=== PATIENT | male | born 1980 ===

== ENCOUNTER 2016-09-26 21:30 | Emergency (ER) | payer MEDICAID ==
[2016-09-26 21:51] VITALS: BP 154/76; PULSE 91; RESP 20; TEMP 98; O2SAT 99
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
== END 2016-09-26 23:59 | disposition home or self-care (01) ==
LOC: H.ER 21:30
DX: S10.93XA Contusion of unspecified part of neck, initial encounter (principal); S02.2XXA Fracture of nasal bones, initial encounter for closed fracture; Y04.0XXA Assault by unarmed brawl or fight, initial encounter; Y92.89 Other specified places as the place of occurrence of the external cause

== ENCOUNTER 2017-09-16 19:45 | Emergency (ER) | payer MEDICAID ==
[2017-09-16 20:07] VITALS: BP 109/71; RESP 18; O2SAT 99
--- NOTE | 2017-09-16 21:04 | ED PDOC ---
HPI: Chest Pain Chief Complaint (Nursing): Chest Pain Chief Complaint (Provider): Chest pain History Per: Patient Additional Complaint(s): 37 yo male, PMH of Asthma, presents to ED with complains of 2 days of right sided chest wall pain worse with movement, deep inspiration and upon palpation. No medications taken for pain thus far. No palpitations, SOB, no nausea or vomiting or diaphroesis. Past Medical History Reviewed: Nursing Documentation, Vital Signs Vital Signs: Last Vital Signs Temp 98.1 F 09/16/17 20:04 Pulse 82 09/16/17 21:14 Resp 18 09/16/17 20:04 BP 109/71 09/16/17 20:04 Pulse Ox 99 09/16/17 21:15 - Medical History PMH: Asthma - Surgical History Surgical History: No Surg Hx - Family History Family History: States: Unknown Family Hx - Living Arrangements Living Arrangements: With Family - Social History Current smoker - smoking cessation education provided: Yes (1-2 PPD x 20 + years ) Ex-Smoker (has not smoked in the last 12 months): No Alcohol: None Drugs: Denies - Immunization History Hx Tetanus Toxoid Vaccination: No Hx Influenza Vaccination: No Hx Pneumococcal Vaccination: No - Home Medications Home Medications: Ambulatory Orders Medication Instructions Recorded Acetaminophen/Oxycodone Hydr 1 tab PO Q4H #15 tab 09/29/12 [Percocet 325 mg-5 mg] Naproxen 1 tab PO Q12 PRN #14 tab 09/26/16 Pseudoephedrine [Sudafed Tab] 60 mg PO Q6 PRN #15 tab 09/26/16 Cyclobenzaprine [Cyclobenzaprine 10 mg PO TID #20 tab 09/16/17 HCl] Ibuprofen [Motrin] 600 mg PO Q6 #20 tab 09/16/17 - Allergies Allergies/Adverse Reactions: Allergies Allergy/AdvReac Type Severity Reaction Status Date / Time No Known Allergies Allergy Unverified 09/16/17 20:04 JOEL Risk Score for UA/NSTEMI - JOEL Risk Score Age > 64: NO 3 or more CAD Risk Factors: NO Known CAD (Stenosis greater than 50%): NO Aspirin use in past 7 days: NO Severe Angina: NO EKG ST changes greater than 0.5mm: NO Positive Cardiac Marker: NO JOEL Score: 0 Risk %: 5% Wells Criteria for PE - Wells Criteria for Pulmonary Embolism Clinical Signs and Symptoms of DVT: No P.E is #1 Diagnosis, or Equally Likely: No Heart Rate >100: No Immobilization at least 3 days;Surgery previous 4 weeks: No Previous, objectively diagnosed PE or DVT: No Hemoptysis: No Malignancy w/treatment within 6 months, or palliative: No Total Score: 0 Review of Systems ROS Statement: Except As Marked, All Systems Reviewed And Found Negative Cardiovascular: Positive for: Chest Pain Physical Exam - Reviewed Nursing Documentation Reviewed: Yes Vital Signs Reviewed: Yes - Physical Exam Appears: Positive for: Well, Non-toxic, No Acute Distress Head Exam: Positive for: ATRAUMATIC, NORMAL INSPECTION, NORMOCEPHALIC Skin: Positive for: Normal Color, Warm, DRY Eye Exam: Positive for: EOMI, Normal appearance, PERRL ENT: Positive for: Normal ENT Inspection Neck: Positive for: Normal, Painless ROM Cardiovascular/Chest: Positive for: Regular Rate, Rhythm. Negative for: Chest Non Tender ((+) tenderness to right 3-4th ribs, no edema, no ecchymosis no crepitus) Respiratory: Positive for: CNT, Normal Breath Sounds Gastrointestinal/Abdominal: Positive for: Normal Exam, Soft Back: Positive for: Normal Inspection Extremity: Positive for: Normal ROM Neurologic/Psych: Positive for: Alert, Oriented - Laboratory Results Result Diagrams: 09/16/17 21:54 09/16/17 21:54 - ECG O2 Sat by Pulse Oximetry: 99 Medical Decision Making Medical Decision Making: EKG interpreted and cleared by ED MD IV access established and treatment initiated with Toradol. pt on re-eval, reports feeling improved and is asking to leave ED Pt does not want to wait for diagnotic review CXR: NAd, as panda dby PA-C labs pending pt advised to remain in ED, importance of lab review was discussed; however, Pt agreed to sign out AMA Disposition - Clinical Impression Clinical Impression: Chest wall pain - Patient ED Disposition Is Patient to be Admitted: No - Disposition Disposition: Routine/Home Disposition Time: 22:16 Condition: STABLE Prescriptions: Cyclobenzaprine [Cyclobenzaprine HCl] 10 mg PO TID #20 tab Ibuprofen [Motrin] 600 mg PO Q6 #20 tab Instructions: Chest Pain That Is Not Caused by the Heart (DC) Forms: [employer] (Hebrew)
[2017-09-16 21:15] VITALS: PULSE 82
[2017-09-16 22:01] LABS: BASO # 0.1 K/uL (0.0-0.2); BASO % 0.8 % (0.0-2.0); EOS # 0.4 K/uL (0.0-0.7); LYMPH # 2.9 K/uL (1.0-4.3); LYMPH % 24.4 % (20.0-40.0); MEAN CELL VOLUME 92.6 fl (80.0-94.0); MEAN CORPUSCULAR HEMOGLOBIN 30.8 pg (27.0-31.0); MEAN CORPUSCULAR HGB CONC 33.3 g/dL (33.0-37.0); MEAN PLATELET VOLUME 9.7 fl (7.2-11.7); MONO # 0.8 K/uL (0.0-0.8); MONO % 6.5 % (0.0-10.0); NEUT # 7.8 K/uL (1.8-7.0); NEUT % 65.3 % (50.0-75.0); RBC 4.56 Mil/uL (4.40-5.90); RED CELL DISTRIBUTION WIDTH 14.6 % (11.5-14.5)
[2017-09-16 22:09] LABS: ALB/GLOB RATIO 1.2 (1.0-2.1); ALBUMIN 4.3 g/dL (3.5-5.0); ALT/SGPT 20 U/L (21-72); AST/SGOT 21 U/L (17-59); BLOOD UREA NITROGEN 13 mg/dl (9-20); CALCIUM 9.1 mg/dL (8.4-10.2); GFR AFRICAN-AMERICAN > 60; GFR NON-AFRICAN AMERICAN > 60
[2017-09-17 00:01] VITALS: TEMP 98.3
--- NOTE | 2017-09-17 08:03 | CARD ---
APPROVED REPORT Date of service: 09/16/2017 EKG Measurement Heart [id number] <Conclusion> Normal sinus rhythm Normal ECG
--- NOTE | 2017-09-17 08:40 | RAD ---
HISTORY: COMPARISON: No prior. TECHNIQUE: Chest PA and lateral FINDINGS: LINES AND TUBES: None. LUNG AND PLEURA: The lungs are well inflated. There are calcified granulomas in the right upper lobe. No focal consolidation. No pleural effusion or pneumothorax. HEART AND MEDIASTINUM: The heart is not enlarged. The hilar and mediastinal contours are within normal limits. SKELETAL STRUCTURES: The bony structures are within normal limits for the patient's age. VISUALIZED UPPER ABDOMEN: Normal. OTHER FINDINGS: None. IMPRESSION: No active pulmonary disease.
== END 2017-09-16 22:02 | disposition left against medical advice (07) ==
LOC: H.ER 19:45
DX: R07.89 Other chest pain (principal)
CPT/HCPCS: 71046; 80053; 84484; 85025; 93005; 96374; J1885

== ENCOUNTER 2017-09-25 12:56 | Emergency (ER) | payer MEDICAID ==
[2017-09-25 13:25] VITALS: BP 106/74; PULSE 77; RESP 16; TEMP 98.5; O2SAT 96
[2017-09-25] MEDS ORDERED: Lidocaine 1% w Epi 1:100,000 Inj ONE (13:39)
[2017-09-25] MEDS ORDERED: Lidocaine 1% w Epi 1:100,000 Inj IJ STA (13:39)
--- NOTE | 2017-09-25 14:04 | ED PDOC ---
HPI: Skin/Bite Injury Time Seen by Provider: 09/25/17 13:31 Chief Complaint (Nursing): Abnormal Skin Integrity Chief Complaint (Provider): Abscess - Left axilla x 3 days, no drainage History Per: Patient History/Exam Limitations: no limitations Onset/Duration Of Symptoms: Days Current Symptoms Are (Timing): Still Present Past Medical History Reviewed: Historical Data, Nursing Documentation, Vital Signs Vital Signs: Last Vital Signs Temp 98.5 F 09/25/17 13:23 Pulse 77 09/25/17 13:23 Resp 16 09/25/17 13:23 BP 106/74 09/25/17 13:23 Pulse Ox 96 09/25/17 13:23 - Medical History PMH: Asthma - Surgical History Surgical History: No Surg Hx - Family History Family History: States: Unknown Family Hx - Living Arrangements Living Arrangements: With Family - Social History Current smoker - smoking cessation education provided: No - Immunization History Hx Tetanus Toxoid Vaccination: No Hx Influenza Vaccination: No Hx Pneumococcal Vaccination: No - Home Medications Home Medications: Ambulatory Orders Medication Instructions Recorded Acetaminophen/Oxycodone Hydr 1 tab PO Q4H #15 tab 09/29/12 [Percocet 325 mg-5 mg] Naproxen 1 tab PO Q12 PRN #14 tab 09/26/16 Pseudoephedrine [Sudafed Tab] 60 mg PO Q6 PRN #15 tab 09/26/16 Cyclobenzaprine [Cyclobenzaprine 10 mg PO TID #20 tab 09/16/17 HCl] Ibuprofen [Motrin] 600 mg PO Q6 #20 tab 09/16/17 Cephalexin [Keflex] 500 mg PO BID #14 capsule 09/25/17 - Allergies Allergies/Adverse Reactions: Allergies Allergy/AdvReac Type Severity Reaction Status Date / Time No Known Allergies Allergy Verified 09/25/17 13:23 Review of Systems ROS Statement: Except As Marked, All Systems Reviewed And Found Negative Constitutional: Negative for: Fever, Chills Skin: Positive for: Other Physical Exam - Reviewed Nursing Documentation Reviewed: Yes Vital Signs Reviewed: Yes - Physical Exam Appears: Positive for: Well, Non-toxic, No Acute Distress Head Exam: Positive for: ATRAUMATIC, NORMAL INSPECTION, NORMOCEPHALIC Skin: Positive for: Warm. Negative for: Normal Color (2 cm abscess - Left axilla ) Eye Exam: Positive for: Normal appearance ENT: Positive for: Normal ENT Inspection Neck: Positive for: Normal, Painless ROM Respiratory: Negative for: Accessory Muscle Use, Respiratory Distress Back: Positive for: Normal Inspection Extremity: Positive for: Normal ROM Neurologic/Psych: Positive for: Alert, Oriented - ECG O2 Sat by Pulse Oximetry: 96 Disposition - Clinical Impression Clinical Impression: Abscess - Patient ED Disposition Is Patient to be Admitted: No Counseled Patient/Family Regarding: Diagnosis, Need For Followup, Rx Given - Disposition Disposition: Routine/Home Disposition Time: 14:02 Condition: GOOD Additional Instructions: Warm compresses Prescriptions: Cephalexin [Keflex] 500 mg PO BID #14 capsule Instructions: Abscess Incision and Drainage - Incision & Drainage Of Abscess Anesthesia: Lidocaine 1%, With Epi Prep Used: Betadine Procedure: Incised W/Scalpel Blade#: (11), Drained Pus, Irrigated Cavity W/ Saline, Probed To Break Up Loculations, Packed W/Gauze
== END 2017-09-25 14:11 | disposition home or self-care (01) ==
LOC: H.ER 12:56
DX: L02.412 Cutaneous abscess of left axilla (principal)